=== PATIENT | male | born 1960 | race Caucasian/White ===

== ENCOUNTER → 2016-10-21 | Outpatient (CLI) | payer BC | LOC: LAB 08:39 | DX: R97.20 Elevated prostate specific antigen [PSA] (principal) ==

== ENCOUNTER → 2017-01-15 | Outpatient (CLI) | payer BC | LOC: LAB 08:22 | DX: Z12.5 Encounter for screening for malignant neoplasm of prostate (principal); Z13.6 Encounter for screening for cardiovascular disorders; Z13.1 Encounter for screening for diabetes mellitus ==

== ENCOUNTER → 2017-02-17 | Outpatient (CLI) | payer BC ==
[~2017-02-17] VITALS: Ht 193 cm; Wt 94.1 kg
[~2017-02-17] MED LIST: B COMPLEX & B121 TAB PO; CALCIUM CARBON500 M3; FINASTERIDE5 M1 PO; FISH OIL1 IU PO; MULTIPLE VITAMI1 TA1 PO; SAW PALMETTO500 M1; VITAMIN E1000 UNIT; XANAX0.5 M1 PO
[2017-02-17 10:22] VITALS: BP 154/78
== END ==
LOC: AMSURD 09:38
DX: I10 Essential (primary) hypertension (principal)

== ENCOUNTER → 2018-01-26 | Outpatient (CLI) | payer BC ==
[2017-02-17 10:22] VITALS: BP 154/78
[2018-01-26 10:49] LABS: ALBUMIN 4.2 g/dL (3.5-5.0); CALCIUM 9.3 mg/dL (8.4-10.2); POTASSIUM 4.5 mmol/L (3.6-5.0); TOTAL BILIRUBIN 0.6 mg/dL (0.2-1.3); TOTAL PROTEIN 7.1 g/dL (6.3-8.2)
== END ==
LOC: LAB 09:54
PROVIDERS: Family Medicine
DX: Z12.5 Encounter for screening for malignant neoplasm of prostate (principal); Z13.6 Encounter for screening for cardiovascular disorders; Z13.1 Encounter for screening for diabetes mellitus

== ENCOUNTER → 2020-02-28 | Outpatient (CLI) | payer BC ==
[2017-02-17 10:22] VITALS: BP 154/78
[2020-02-28 08:44] LABS: POTASSIUM 4.3 mmol/L (3.5-5.1)
[2020-02-28 08:45] LABS: ALBUMIN 4.2 g/dL (3.4-4.8)
[2020-02-28 08:46] LABS: CALCIUM 9.1 mg/dL (8.3-10.5)
[2020-02-28 08:47] LABS: TOTAL PROTEIN 6.9 g/dL (6.2-8.1)
[2020-02-28 08:49] LABS: TOTAL BILIRUBIN 0.4 mg/dL (0.2-1.2)
== END ==
LOC: LAB 08:14
PROVIDERS: Family Medicine
DX: Z12.5 Encounter for screening for malignant neoplasm of prostate (principal); Z13.1 Encounter for screening for diabetes mellitus; Z13.6 Encounter for screening for cardiovascular disorders; I10 Essential (primary) hypertension

== ENCOUNTER → 2021-02-26 | Outpatient (CLI) | payer BC ==
[2021-02-26 08:52] LABS: ALBUMIN 4.1 g/dL (3.4-4.8); POTASSIUM 4.7 mmol/L (3.5-5.1)
[2021-02-26 08:53] LABS: CALCIUM 9.7 mg/dL (8.3-10.5)
[2021-02-26 08:55] LABS: TOTAL PROTEIN 7.3 g/dL (6.2-8.1)
[2021-02-26 08:57] LABS: TOTAL BILIRUBIN 0.4 mg/dL (0.2-1.2)
== END ==
LOC: LAB 08:03
PROVIDERS: Family Medicine
DX: Z13.6 Encounter for screening for cardiovascular disorders (principal); N40.0 Benign prostatic hyperplasia without lower urinary tract symptoms; I10 Essential (primary) hypertension

== ENCOUNTER → 2021-05-02 | Outpatient (CLI) | payer BC | LOC: LAB 14:51 | DX: D64.9 Anemia, unspecified (principal) ==

== ENCOUNTER → 2021-07-31 | Outpatient (CLI) | payer BC ==
[2021-07-31 17:10] LABS: HEMATOCRIT 41.8 % (42.0-52.0); HEMOGLOBIN 14.5 g/dL (13.5-18.0); MEAN PLATELET VOLUME 9.1 fl (7.4-10.4); RED BLOOD COUNT 4.62 M/mm3 (4.20-5.60); RED CELL DISTRIBUTION WIDTH 12.2 % (11.5-14.5); WHITE BLOOD COUNT 6.3 K/mm3 (4.8-10.8)
== END ==
LOC: LAB 16:45
PROVIDERS: Family Medicine
DX: D64.9 Anemia, unspecified (principal); I10 Essential (primary) hypertension; R06.83 Snoring; R25.1 Tremor, unspecified

== ENCOUNTER → 2022-03-22 | Outpatient (CLI) | payer BC ==
[2022-03-22 09:58] LABS: HEMATOCRIT 48.9 % (42.0-52.0); HEMOGLOBIN 16.6 g/dL (13.5-18.0); MEAN PLATELET VOLUME 9.8 fl (7.4-10.4); RED BLOOD COUNT 5.43 M/mm3 (4.20-5.60); RED CELL DISTRIBUTION WIDTH 12.3 % (11.5-14.5); WHITE BLOOD COUNT 5.9 K/mm3 (4.8-10.8)
[2022-03-22 10:36] LABS: ALBUMIN 4.4 g/dL (3.4-4.8); POTASSIUM 4.7 mmol/L (3.5-5.1)
[2022-03-22 10:37] LABS: CALCIUM 9.2 mg/dL (8.3-10.5)
[2022-03-22 10:39] LABS: TOTAL PROTEIN 7.4 g/dL (6.2-8.1)
[2022-03-22 10:41] LABS: TOTAL BILIRUBIN 0.5 mg/dL (0.2-1.2)
== END ==
LOC: LAB 09:15
PROVIDERS: Family Medicine
DX: Z13.220 Encounter for screening for lipoid disorders (principal); Z12.5 Encounter for screening for malignant neoplasm of prostate; E61.1 Iron deficiency; I10 Essential (primary) hypertension; N40.0 Benign prostatic hyperplasia without lower urinary tract symptoms

== ENCOUNTER → 2022-05-27 | Outpatient (CLI) | payer BC | LOC: CARDREHAB 04-26 08:20 | DX: Z00.00 Encounter for general adult medical examination without abnormal findings (principal); Z13.6 Encounter for screening for cardiovascular disorders; E78.2 Mixed hyperlipidemia ==

== ENCOUNTER → 2022-07-15 | Outpatient (CLI) | payer BC ==
[2022-07-15 08:26] LABS: ALBUMIN 4.3 g/dL (3.4-4.8)
[2022-07-15 08:30] LABS: HEMATOCRIT 46.3 % (42.0-52.0); HEMOGLOBIN 15.7 g/dL (13.5-18.0); MEAN PLATELET VOLUME 9.1 fl (7.4-10.4); RED BLOOD COUNT 5.06 M/mm3 (4.20-5.60); RED CELL DISTRIBUTION WIDTH 11.7 % (11.5-14.5); TOTAL BILIRUBIN 0.5 mg/dL (0.2-1.2); WHITE BLOOD COUNT 6.1 K/mm3 (4.8-10.8)
[2022-07-15 08:34] LABS: DIRECT BILIRUBIN 0.2 mg/dL (0.0-0.5)
== END ==
LOC: LAB 08:00
PROVIDERS: Family Medicine
DX: Z00.00 Encounter for general adult medical examination without abnormal findings (principal); Z23 Encounter for immunization; I10 Essential (primary) hypertension; D64.9 Anemia, unspecified; H61.23 Impacted cerumen, bilateral; Z71.89 Other specified counseling

== ENCOUNTER → 2023-09-22 | Outpatient (CLI) | payer BC ==
[2023-09-22 09:22] LABS: CALCIUM 9.7 mg/dL (8.3-10.5)
== END ==
LOC: LAB 09:00
PROVIDERS: Family Medicine
DX: I10 Essential (primary) hypertension (principal); E78.2 Mixed hyperlipidemia

== ENCOUNTER → 2024-03-29 | Outpatient (CLI) | payer BC ==
[2024-03-29 10:16] LABS: CALCIUM 9.9 mg/dL (8.3-10.5)
[2024-03-30 00:17] LABS: CREATININE OTHER SOURCE 96 mg/dL (47-110)
== END ==
LOC: LAB 09:51
PROVIDERS: Family Medicine
DX: Z12.5 Encounter for screening for malignant neoplasm of prostate (principal); I10 Essential (primary) hypertension